=== PATIENT | male | born 1945 | race Caucasian/White ===

== ENCOUNTER 2023-04-08 12:20 | Outpatient (CLI) | payer MEDICARE, OTHER | END 2023-04-08 12:21 | disposition home or self-care (01) | LOC: CSHCP 12:20 | PROVIDERS: ATTEND Internal Medicine Critical Care Medicine | DX: R06.09 Other forms of dyspnea (principal); R94.2 Abnormal results of pulmonary function studies | CPT/HCPCS: 94060; 94726; 94729; 94760 ==